=== PATIENT | male | born 1960 | race Caucasian/White ===

== ENCOUNTER 2020-01-28 16:44 | Emergency (ER) | payer OTHER ==
[~2020-01-28] VITALS: Ht 177.8 cm; Wt 104.3 kg
[2020-01-28] MEDS ORDERED: SUCCINYLCHOLINE CHLORIDE 20 MG/ML 10ML VIAL IV ONE (18:27)
[2020-01-28] MEDS ORDERED: ETOMIDATE (2MG/ML) 20ML VIAL IV ONE (18:28)
[2020-01-28] MEDS ORDERED: MIDAZOLAM DRIP 50 mg/50mL 50 ML IV ONE (18:33)
[2020-01-28] MEDS ORDERED: MIDAZOLAM DRIP 50 mg/50mL 50 ML IV SCH (19:15)
[2020-01-28 19:45] VITALS: BP 181/104
== END 2020-01-28 19:51 | disposition short-term general hospital (02) ==
LOC: EDBD 16:44 → ER 16:58
DX: R41.82 Altered mental status, unspecified (principal); I61.0 Nontraumatic intracerebral hemorrhage in hemisphere, subcortical
CPT/HCPCS: 31500; 70450; 71045; 93005; 99291; J0330; J2250; 94002; 96374; 96375